=== PATIENT | female | born 1955 | race Caucasian/White ===

== ENCOUNTER 2017-06-11 00:23 | Emergency (ER) | payer MEDICARE ==
[~2017-06-11] VITALS: Ht 160 cm; Wt 51.0 kg
[~2017-06-11 00:23] MED LIST: ACET325T14 PO; CEFD300C37 PO; CIPR500T87 PO; FAMO20TA7 PO; FLUO20CA19 PO; HYDR25TA11 PO; LORA2TAB PO; METH40TA3 PO; METH500T7 PO; NICO-486 TD; TRAZ100T15 PO; ZOLP10TA5 PO
[2017-06-11] MEDS ORDERED: NALOXONE 0.4 MG/ML, 1ML ONE (00:29)
[2017-06-11] MEDS ORDERED: NALOXONE 0.4 MG/ML, 1ML IVPush PRN (00:30)
[2017-06-11] MEDS ORDERED: SODIUM CHLORIDE 0.9% 1,000ML IVBOLUS ONE (00:30)
[2017-06-11] MEDS ORDERED: NALOXONE 1 MG/ML, 2ML ONE (00:39)
[2017-06-11 00:55] LABS: HEMATOCRIT 36.9 % (34.6-47.8); HEMOGLOBIN 12.6 g/dL (11.7-16.4)
[2017-06-11] MEDS ORDERED: NALOXONE 1 MG/ML, 2ML IVPush ONE (01:00)
[2017-06-11 01:07] LABS: ASPARTATE AMINO TRANSFERASE 25 U/L (15-37); BLOOD UREA NITROGEN 16 mg/dL (7-18)
[2017-06-11 01:16] LABS: ACETAMINOPHEN < 2 mcg/mL (10-30)
[2017-06-11] MEDS ORDERED: TRAZ100T15 PO (01:55)
[2017-06-11 04:26] VITALS: BP 107/59
== END 2017-06-11 04:28 | disposition home or self-care (01) ==
LOC: ED 01:09
DX: T42.4X1A Poisoning by benzodiazepines, accidental (unintentional), initial encounter (principal); F13.20 Sedative, hypnotic or anxiolytic dependence, uncomplicated; J44.9 Chronic obstructive pulmonary disease, unspecified; Y92.89 Other specified places as the place of occurrence of the external cause; Z88.8 Allergy status to other drugs, medicaments and biological substances
CPT/HCPCS: 36415; 70450; 71010; 80053; 80307; 80329; 85025; 87040; 93005; 96374; 99285; J2310; J7030; G0479; G0480